=== PATIENT | male | born 1960 | race Hispanic/Latino ===

== ENCOUNTER 2025-02-10 15:16 | Inpatient (IN) | payer BC ==
[~2025-02-10] VITALS: Ht 172.7 cm; Wt 102.5 kg
[2025-02-10] MEDS ORDERED: LISINOPRIL2.5 MG PO (15:40)
[2025-02-10] MEDS ORDERED: ATORVASTATIN CA10 MG PO (15:40)
[2025-02-10] MEDS ORDERED: METFORMIN HCL500 MG PO (15:40)
[2025-02-10] MEDS: ACETAMINOPHEN 1000 MG/100 ML IV ONE (15:50)
[2025-02-10] MEDS: SODIUM CHLORIDE 0.9% IV SCH (16:00)
[2025-02-10 16:04] LABS: BASOPHILS % 0.2 % (0.0-1.0); EOSINOPHILS % 0.1 % (0.0-6.0); LYMPHOCYTES % 3.3 % (18.0-39.1); MONOCYTES % 7.7 % (4.4-11.3); NEUTROPHILS % 87.2 % (38.7-80.0); RED CELL DISTRIBUTION WIDTH 12.7 % (11.7-14.4)
[2025-02-10 16:16] LABS: INR 0.95
[2025-02-10 16:20] LABS: LEUKOCYTE ESTERASE ,URINE SMALL (NEGATIVE); PROTEIN,URINE DIPSTICK >=300 (NEGATIVE)
[2025-02-10 16:21] LABS: URINE UROBILINOGEN 2.0 mg/dL (0.2 - 1)
[2025-02-10 16:24] LABS: EST GLOMERULAR FILTRATION RATE 82.0 ML/MIN (>=60)
[2025-02-10 16:25] LABS: WBC,URINE (MAN) >50 /HPF (0-5)
[2025-02-10 16:36] LABS: CORONAVIRUS COVID-19 AG NEGATIVE (NEGATIVE)
[2025-02-10] MEDS: Vancomycin IV 1 GM in SODIUM CHLORIDE 0.9% 250ML 250 ML IV ONE (17:40)
[2025-02-10] MEDS ORDERED: ONDANSETRON HCL INJ 2MG/ML 2ML 2 MG/ML VIAL IV PRN (18:30)
[2025-02-10] MEDS ORDERED: ACETAMINOPHEN 325 MG TAB PO PRN (18:30)
[2025-02-10] MEDS ORDERED: IBUPROFEN 600 MG TAB PO PRN (18:30)
[2025-02-10] MEDS: SODIUM CHLORIDE 0.9% 1000ML 1,000 ML IV SCH (19:02)
[2025-02-10 19:03] VITALS: PULSE 84; RESP 18; TEMP 99
[2025-02-10 19:52] VITALS: BP 106/67; PULSE 51; RESP 20; TEMP 98.1; O2SAT 93
[2025-02-10 21:00] VITALS: BP 106/67; PULSE 51; RESP 20; TEMP 98.1; O2SAT 93
[2025-02-10 21:01] VITALS: BP 106/67; PULSE 51; RESP 20; TEMP 98; O2SAT 93
[2025-02-11] VITALS (8 sets, daily range): BP systolic 102–133; BP diastolic 62–80; PULSE 60–84; RESP 16–20; TEMP 97.8–99.3; O2SAT 94–100
[2025-02-11 06:54] LABS: BASOPHILS % 0.4 % (0.0-1.0); EOSINOPHILS % 0.8 % (0.0-6.0); LYMPHOCYTES % 8.2 % (18.0-39.1); MONOCYTES % 12.1 % (4.4-11.3); NEUTROPHILS % 76.7 % (38.7-80.0); RED CELL DISTRIBUTION WIDTH 12.9 % (11.7-14.4)
[2025-02-11 07:19] LABS: CHOL/HDL RATIO 5.8 (3.9-4.7); EST GLOMERULAR FILTRATION RATE 96.0 ML/MIN (>=60); LDL CHOLESTEROL 54.0 MG/DL (60-130)
[2025-02-11] MEDS ORDERED: DEXTROSE 50% SYRINGE 50 ML IV PRN (17:45)
[2025-02-11] MEDS: INSULIN REGULAR, HUMAN 100 UNIT/1 ML SQ SCH (21:25)
[2025-02-12] VITALS (7 sets, daily range): BP systolic 109–155; BP diastolic 58–86; PULSE 75–88; RESP 18–20; TEMP 98–99; O2SAT 98–100
[2025-02-12 06:58] LABS: BASOPHILS % 0.5 % (0.0-1.0); EOSINOPHILS % 2.3 % (0.0-6.0); LYMPHOCYTES % 14.4 % (18.0-39.1); MONOCYTES % 14.8 % (4.4-11.3); NEUTROPHILS % 64.9 % (38.7-80.0); RED CELL DISTRIBUTION WIDTH 12.7 % (11.7-14.4)
[2025-02-12 07:37] LABS: EST GLOMERULAR FILTRATION RATE 98.0 ML/MIN (>=60)
[2025-02-12] MEDS: METFORMIN HCL 500 MG TAB PO SCH (08:58)
[2025-02-12] MEDS: LEVOFLOXACIN 500 MG TAB PO SCH (22:03)
[2025-02-13] VITALS (8 sets, daily range): BP systolic 123–159; BP diastolic 71–89; PULSE 77–87; RESP 18–20; TEMP 97.5–98.3; O2SAT 97–100
[2025-02-14] VITALS: BP 135/70; PULSE 75; RESP 18; TEMP 98; O2SAT 98
[2025-02-14 04:00] VITALS: BP 112/68; PULSE 70; RESP 18; TEMP 98.1; O2SAT 99
[2025-02-14 08:00] VITALS: BP 153/82; PULSE 72; RESP 19; TEMP 97.6; O2SAT 100
[2025-02-14 08:52] VITALS: BP 153/82; PULSE 72; RESP 19; TEMP 97; O2SAT 100
[2025-02-14 11:00] VITALS: PULSE 76; RESP 20; TEMP 98.4; O2SAT 100
== END 2025-02-14 13:40 | disposition home or self-care (01) | DRG 872 ==
LOC: ER 16:03 → ERHOLD 18:28 → MED/SURG3 21:14
PROVIDERS: ADMIT Internal Medicine; ATTEND Internal Medicine
PROC: 3E0333Z Introduction of Anti-inflammatory into Peripheral Vein, Percutaneous Approach (ICD-10-PCS; principal; 2025-02-10)
DX: A41.51 Sepsis due to Escherichia coli [E. coli] (principal); N12 Tubulo-interstitial nephritis, not specified as acute or chronic; N30.91 Cystitis, unspecified with hematuria; E11.9 Type 2 diabetes mellitus without complications; I10 Essential (primary) hypertension; E78.00 Pure hypercholesterolemia, unspecified; E66.9 Obesity, unspecified; N40.0 Benign prostatic hyperplasia without lower urinary tract symptoms; N20.0 Calculus of kidney; K80.20 Calculus of gallbladder without cholecystitis without obstruction; R53.81 Other malaise; Z11.52 Encounter for screening for COVID-19; Z79.84 Long term (current) use of oral hypoglycemic drugs
CPT/HCPCS: 36415; 71045; 74176; 80053; 80061; 81001; 82550; 82948; 83036; 83518; 83605; 83735; 84152; 84443; 84484; 85025; 85610; 85730; 87040; 87070; 87071; 87086; 87186; 87205; 93005; 96372; 99284; J2543; J3373; J7030; J7050